=== PATIENT | female | born 1965 | race Caucasian/White ===

== ENCOUNTER 2018-10-21 01:29 | Emergency (ER) | payer OTHER ==
[2018-10-21] MEDS ORDERED: IPRATROPIUM/ALBUTEROL SULFATE 3 ML SOLUTION IH ONE (01:45)
[2018-10-21] MEDS ORDERED: METHYLPREDNISOLONE SOD SUCC 40MG/ML 1ML ONE (01:48)
[2018-10-21] MEDS ORDERED: DiphenhydrAMINE HCL 50 MG/ML VIAL ONE (01:49)
[2018-10-21] MEDS ORDERED: FAMOTIDINE/PF 20 MG/2 ML VIAL IV ONE (01:49)
== END 2018-10-21 02:53 | disposition home or self-care (01) ==
LOC: EDH 01:29
DX: L50.0 Allergic urticaria (principal); I10 Essential (primary) hypertension; E11.9 Type 2 diabetes mellitus without complications; Z90.49 Acquired absence of other specified parts of digestive tract; Z91.018 Allergy to other foods; Z72.0 Tobacco use
CPT/HCPCS: 94640; 96374; 96375; 99283; J1200; J2920; J3490

== ENCOUNTER 2018-11-02 02:02 | Observation (INO) | payer OTHER ==
[~2018-11-02] VITALS: Ht 165.1 cm; Wt 104.3 kg
[2018-11-02] MEDS ORDERED: ASPIRIN 81MG TAB.CHEW ONE (02:15)
[2018-11-02] MEDS ORDERED: ACETAMINOPHEN 325 MG TAB ONE (02:15)
[2018-11-02 02:20] LABS: BASOPHILS % (AUTO) 0.8 % (0.0-5.0); EOSINOPHILS % (AUTO) 1.3 % (0.0-8.0); HEMATOCRIT 44.6 % (36-48); LYMPHOCYTES % (AUTO) 23.6 % (21.0-51.0); MEAN CORPUSCULAR HEMOGLOBIN 30.1 pg (27.0-33.0); MEAN CORPUSCULAR HGB CONC 32.2 g/dL (32.0-36.0); MEAN CORPUSCULAR VOLUME 93.6 fL (79-99); MONOCYTES % (AUTO) 6.1 % (3.0-13.0); NEUTROPHILS % (AUTO) 68.2 % (40.0-77.0); PLATELET COUNT (AUTO) 200 K/uL (130-400); RED BLOOD CELL COUNT(AUTO) 4.77 MIL/uL (4.00-5.50); RED CELL DISTRIBUTION WIDTH 13.8 % (11.0-15.5); WHITE BLOOD COUNT (AUTO) 13.8 K/uL (4.8-10.8)
[2018-11-02 02:34] LABS: INR 0.89 (0.85-1.15); PROTHROMBIN TIME 9.4 SEC (9.6-11.6)
[2018-11-02 02:37] LABS: CREATININE 1.1 mg/dL (0.5-1.5); POTASSIUM 3.5 mmol/L (3.5-5.1)
[2018-11-02 02:48] LABS: ALBUMIN 3.6 g/dL (3.5-5.0); BILIRUBIN,TOTAL 0.1 mg/dL (0.2-1.0); TOTAL PROTEIN, SERUM 7.1 g/dL (6.0-8.3)
[2018-11-02] MEDS ORDERED: DILTIAZEM HCL 5 MG/ML 5 ML VIAL IVP ONE (02:51)
[2018-11-02] MEDS ORDERED: DILTIAZEM HCL 125 MG/25 ML VIAL IV ONE (02:51)
[2018-11-02] MEDS ORDERED: SODIUM CHLORIDE 0.9% 100 ML IV ONE (03:00)
[2018-11-02] MEDS ORDERED: GLUCAGON 1MG KIT 1 MG ML IM PRN (04:15)
[2018-11-02] MEDS ORDERED: DEXTROSE 50%-WATER 50 ML DISP.SYRIN IV PRN (04:15)
[2018-11-02] MEDS ORDERED: NITROGLYCERIN 0.4 MG SL TAB SL PRN (04:15)
[2018-11-02 05:00] VITALS: BP 123/55
[2018-11-02 06:07] LABS: CHOLESTEROL 177 mg/dL (<200); HDL CHOLESTEROL 54 mg/dL (35-85); LDL DIRECT 99 mg/dL (0-99); TRIGLYCERIDES 160 mg/dL (30-200)
[2018-11-02] MEDS ORDERED: LISI40TA4 PO (06:21)
[2018-11-02] MEDS ORDERED: ACET-2893 PO (06:21)
[2018-11-02] MEDS ORDERED: FAMO20TA8 PO (06:21)
[2018-11-02] MEDS ORDERED: NITR0.4T50 SL (06:21)
[2018-11-02] MEDS ORDERED: SITA1TAB6 PO (06:21)
[2018-11-02] MEDS ORDERED: PRAV40TA3 PO (06:21)
[2018-11-02] MEDS ORDERED: LEVO500T89 PO (06:21)
[2018-11-02] MEDS ORDERED: ASCO-477 PO (06:21)
[2018-11-02] MEDS ORDERED: METO25TA6 PO (06:21)
[2018-11-02] MEDS ORDERED: EMPA25TA PO (06:21)
[2018-11-02] MEDS ORDERED: SUCR1TAB2 PO (06:21)
[2018-11-02] MEDS ORDERED: ASPI-1012 PO (06:21)
[2018-11-02] MEDS: INSULIN R PO SS1 SQ SCH ×4 (06:22→21:35)
[2018-11-02 07:00] VITALS: BP 141/76
[2018-11-02] MEDS: ASPIRIN 81MG TAB.CHEW PO SCH (08:38)
[2018-11-02] MEDS: METOPROLOL TARTRATE 50 MG TAB PO SCH ×2 (08:38→20:34)
[2018-11-02] MEDS ORDERED: ENOXAPARIN SODIUM 40 MG/0.4 ML SYRINGE SQ SCH (09:00)
--- NOTE | 2018-11-02 10:41 | NUR ---
[phone] they are raising [place]. pt is [employer], works, drives, is independent, no DME or HH. Plan is home at or Addendum: 11/02/18 at 1042 by INOCENTE HAYES Amended: Links added.
[2018-11-02 11:00] VITALS: BP 127/67
[2018-11-02 16:00] VITALS: BP 137/75
[2018-11-02] MEDS: APIXABAN 5 MG TABLET PO SCH (20:34)
[2018-11-02] MEDS ORDERED: ATORVASTATIN CALCIUM 40 MG TABLET PO SCH (21:00)
--- NOTE | 2018-11-02 21:00 | NUR ---
PT BROUGHT BACK FROM PART 1 LEXISCAN. AWARE OF PART 2 FOR 3/2 AND NPO AT MIDNIGHT. PT STABLE. NO DISTRESS NOTED. STATED SHE HAS HEADACHE. WILL CALL DR. MAGALLANES TO UPDATED ABOUT HEADACHE AND REQUEST FOR TYLENOL PRN. ACTIVE BOWEL SOUNDS. PT STATES NO ISSUES. MEDICATIONS TAKE DIRECTED.
[2018-11-02] MEDS: ACETAMINOPHEN 325 MG TAB PO PRN (21:32)
[2018-11-02 23:07] VITALS: BP 131/56
[2018-11-03 03:43] VITALS: BP 133/61
[2018-11-03 04:14] LABS: HEMATOCRIT 41.8 % (36-48); MEAN CORPUSCULAR HEMOGLOBIN 30.7 pg (27.0-33.0); MEAN CORPUSCULAR HGB CONC 32.7 g/dL (32.0-36.0); MEAN CORPUSCULAR VOLUME 93.8 fL (79-99); PLATELET COUNT (AUTO) 175 K/uL (130-400); RED BLOOD CELL COUNT(AUTO) 4.46 MIL/uL (4.00-5.50); RED CELL DISTRIBUTION WIDTH 13.3 % (11.0-15.5); WHITE BLOOD COUNT (AUTO) 8.9 K/uL (4.8-10.8)
[2018-11-03 04:30] LABS: ALBUMIN 3.4 g/dL (3.5-5.0); BILIRUBIN,TOTAL 0.1 mg/dL (0.2-1.0); CREATININE 0.8 mg/dL (0.5-1.5); MAGNESIUM 1.9 mg/dL (1.80-2.40); POTASSIUM 4.2 mmol/L (3.5-5.1); TOTAL PROTEIN, SERUM 6.7 g/dL (6.0-8.3)
[2018-11-03] MEDS: INSULIN R PO SS1 SQ SCH ×3 (06:16→16:39)
[2018-11-03 07:00] VITALS: BP 145/87
[2018-11-03] MEDS: ASPIRIN 81MG TAB.CHEW PO SCH (07:33)
[2018-11-03] MEDS: APIXABAN 5 MG TABLET PO SCH (07:33)
[2018-11-03] MEDS: METOPROLOL TARTRATE 50 MG TAB PO SCH (07:33)
[2018-11-03] MEDS: ACETAMINOPHEN 325 MG TAB PO PRN ×2 (07:34→12:57)
--- NOTE | 2018-11-03 08:00 | NUR ---
ASSESSMENT PT IS AWAKE AND ALERT SITTING UPRIGHT IN CHAIR. DENIES CP DENIES SOB DENIES NV NO COMPLAINTS. NO VISIBLE SIGNS OF DISTRESS NOTED AT THIS TIME. PENDING 2ND PART STRESS TEST TODAY.
[2018-11-03] MEDS: REGADENOSON 0.4 MG/5 ML PF SYG IVP SCH ×2 (08:15→11:31)
--- NOTE | 2018-11-03 11:00 | NUR ---
DOWN TO 2ND PART STRESS TEST VIA WC
--- NOTE | 2018-11-03 12:40 | NUR ---
RETURNED FROM STRESS TEST AAOX4 DENIES PAIN
[2018-11-03 13:30] VITALS: BP 110/69
--- NOTE | 2018-11-03 15:59 | NUR ---
STATUS RESTING IN BED NO COMPLAINTS. PENDING STRESS TEST RESULTS.
[2018-11-03 16:00] VITALS: BP 149/79
--- NOTE | 2018-11-03 16:00 | NUR ---
DR BOWDEN CALLED GAVE DC RECOMMENDATIONS. PAGED DR MAGALLANES AND LEFT MESSAGE ON HIS CELL. AWAITING CALL BACK.
--- NOTE | 2018-11-03 18:12 | NUR ---
DR MAGALLANES CALLED BACK ORDERS RECEIVED
--- NOTE | 2018-11-03 18:12 | NUR ---
DC INSTRUCTIONS GIVEN AGREE TO TAKE MEDS ORDERED, ALL QUESTIONS ANSWERED, PIV REMOVED CATH TIP INTACT, TELE PACK REMOVED. AGREE TO FOLLOW UP WITH [facility] ORDERED. AWAITING RIDE.
[2018-11-03 19:34] VITALS: BP 151/70
== END 2018-11-03 18:00 | disposition home or self-care (01) ==
LOC: EDH 02:02 → EDHIP 02:03 → 2AH 04:17
PROVIDERS: ADMIT Internal Medicine Infectious Disease; ATTEND Internal Medicine Infectious Disease
DX: I48.0 Paroxysmal atrial fibrillation (principal); E11.9 Type 2 diabetes mellitus without complications; E66.9 Obesity, unspecified; E78.5 Hyperlipidemia, unspecified; I10 Essential (primary) hypertension; I20.0 Unstable angina; J20.9 Acute bronchitis, unspecified; J44.0 Chronic obstructive pulmonary disease with (acute) lower respiratory infection; F17.200 Nicotine dependence, unspecified, uncomplicated; Z82.49 Family history of ischemic heart disease and other diseases of the circulatory system; Z79.899 Other long term (current) drug therapy
CPT/HCPCS: 36415 ×2; 71045; 78452; 80053 ×2; 80061; 82550; 82948 ×7; 83735 ×2; 83874; 83880; 84484; 85025; 85027; 85610; 85730; 93005 ×3; 93017; 93306; 96372 ×2; 99284; A9500 ×2; G0378 ×40; J1650; J1815 ×3; J2785; J3490 ×2; 96374